=== PATIENT | female | born 1980 | race Two or more races ===

== ENCOUNTER 2020-03-11 07:00 | Day surgery (SDC) | payer OTHER ==
[~2020-03-11] VITALS: Ht 160 cm; Wt 78.0 kg
[~2020-03-11 07:00] MED LIST: IRON325 MG PO
[2020-03-12] MEDS ORDERED: CODE1TAB37 PO (08:45)
[2020-03-12] MEDS ORDERED: MAXFE CAPLET1 EACH PO (08:46)
[2020-03-12] MEDS ORDERED: NAPROXEN500 M1 PO (08:46)
== END 2020-03-12 08:00 | disposition home or self-care (01) ==
LOC: CIR.AMB 07:00 → EDBD 07:30 → EDSTATUS 07:30 → SURH 07:30 → O/R 07:30 → SURH 11:45 → OB/GYN 16:33 → O/R 16:33 → OB/GYN 16:55 → CIR.AMB 03-12 08:00 → OB/GYN 03-12 12:12
PROVIDERS: ATTEND Obstetrics & Gynecology
DX: D25.1 Intramural leiomyoma of uterus (principal); D25.0 Submucous leiomyoma of uterus; N81.5 Vaginal enterocele